=== PATIENT | male | born 1975 | race Caucasian/White ===

== ENCOUNTER 2023-03-21 21:38 | Emergency (ER) | payer OTHER, SELFPAY ==
[2023-03-21 21:39] VITALS: BP 149/84; PULSE 88; RESP 16; TEMP 36.1; O2SAT 99; BMI 24.3
--- NOTE | 2023-03-21 21:52 | RAD_ITS ---
EXAM: XR CHEST, 1 VIEW CLINICAL INDICATION: chest pain TECHNIQUE: Frontal view of the chest. COMPARISON: No relevant prior studies available. FINDINGS: LUNGS AND PLEURAL SPACES: No significant abnormality. No consolidation or edema. No pneumothorax. No effusion. HEART: No significant abnormality. Cardiac silhouette not enlarged. MEDIASTINUM: Central airways and mediastinal contour are unremarkable. BONES/JOINTS: No significant abnormality. No acute fracture. SOFT TISSUES: No significant abnormality. RAD/Chest 1 View (Portable) IMPRESSION: No radiographic evidence of acute cardiopulmonary disease. Electronically Signed: Rubens Small DO at 22:03 EST ,
[2023-03-21 21:57] LABS: Absolute Lymphocyte Count 2.71 X10^3/uL (0.83-4.51); Absolute Neutrophil Count 4.7 X10^3/uL (2.0-7.7); Basophil# 0.04 X10^3/uL; Basophil% 0.5 % (0-1); Eosinophil# 0.06 X10^3/uL; Eosinophils% 0.7 % (0-5); Hematocrit 43.4 % (40-54); Hemoglobin 14.5 g/dL (13.0-16.5); Lymphocyte # 2.71 X10^3/ul (0.83-4.51); Lymphocyte % 31.9 % (19-41); Mean Corp Hgb Conc 33.4 g/dL (32-36); Mean Corpuscular Hgb 28.7 pg (27.0-32.0); Mean Corpuscular Volume 85.8 fL (80-94); Mean Platelet Vol. 9.8 fl (6.2-12.0); Monocyte# 0.98 X10^3/uL; Monocyte% 11.5 % (0-10); NRBC Flagged by Analyzer 0 % (0-5); Neutrophil # 4.69 X10^3/uL (2.7-7.7); Neutrophil % 55.2 % (47-70); Platelet Count 283 K/mm3 (150-450); RBC Distribution Width CV 11.9 % (11.6-14.6); RBC Distribution Width SD 37.1 fl (35.1-43.9); Red Blood Count 5.06 M/mm3 (4.6-6.2); White Blood Count 8.5 K/mm3 (4.4-11.0)
[2023-03-21 22:18] LABS: Anion Gap 6 (5-15); BUN 18 mg/dL (7-18); BUN/Creat Ratio 16.5 RATIO (10-20); Calcium,Total 9.5 mg/dL (8.5-10.1); Chloride 103 mmol/L (98-107); Creatinine, Serum 1.09 mg/dL (0.70-1.30); EST Glomerular Filtration Rate 77 mL/min (>60); Est Glom Filt Rate - Afr Amer 93 mL/min (>60); Estimated Creatinine Clearance 83.78 ml/min; Glucose 101 mg/dL (74-106); Potassium 3.4 mmol/L (3.5-5.1); Sodium Level 141 mmol/L (136-145); Troponin-I HS (w/2H Reflex) 4 pg/mL (3.0-78.0)
[2023-03-21 22:30] VITALS: O2SAT 100
[2023-03-21 22:39] VITALS: BP 131/80; PULSE 74; RESP 16; O2SAT 100
--- NOTE | 2023-03-21 22:40 | ED.VIS.CHEST ---
HPI History of Present Illness Chief Complaint: Chest Pain [facility] Medical History no medical history Home Medications omeprazole 20 mg capsule,delayed release 20 mg PO DAILY #30 CAPSULES 03/22/23 [Rx Last Taken Unknown] sucralfate 1 gram tablet (Carafate) 1 g PO BID PRN epigastric pain #14 tabs 03/22/23 [Rx Last Taken Unknown] Allergy/AdvReac Type Severity Reaction Status Date / Time No Known Allergies Allergy Verified 03/21/23 21:39 Social History Smoking Status: Never smoker EXAM Physical Exam Const Vital Signs: 03/21/23 21:39 03/21/23 22:30 03/21/23 22:30 Temperature 96.9 F L Temperature Source Temporal Pulse Rate 88 Respiratory Rate 16 Respiratory Effort Normal Blood Pressure 149/84 H Blood Pressure Mean 105 Pulse Ox 99 100 Oxygen Delivery Method Room Air Room Air 03/21/23 22:39 03/21/23 23:00 Temperature Temperature Source Pulse Rate 74 78 Respiratory Rate 16 18 Respiratory Effort Blood Pressure 131/80 H 130/80 H Blood Pressure Mean 97 96 Pulse Ox 100 100 Oxygen Delivery Method Room Air Room Air Heart Score History: Slightly/Non-Suspicious ECG: Normal Age: >45 - <65 years Risk Factors: No Risk Factors Troponin: </= Normal Limit Score: 1 MDM MDM MDM Narrative Medical decision making narrative: HISTORY OF PRESENT ILLNESS: 47-year-old male presents with chest pain. He states that pain is located in the epigastrium. States it started approximately 1 hour ago. He endorsed a history of GERD. He further states pain occurred after eating a snack. He states he feels like his typical reflux symptoms but did not resolve with Pepcid which concerned him. Denies any syncope. Denies the pain ripping or tearing notes is burning. Denies any exertional component or pleuritic component. Denies any family history of early cardiac . Denies any bleeding diathesis. Denies any vomiting or diarrhea. Patient denies sudden onset of pain, no tearing sensation, no migratory symptoms, no new numbness, weakness or loss of sensation. Patient denies family history or personal history of Marfan syndrome or Inez-Danlos. The patient denies recent surgery in the last 4 weeks or immobilization in the last 3 days, denies previous diagnosis of DVT or PE, hemoptysis, unilateral leg swelling or malignancy with treatment the last 6 months. No estrogen use noted. REVIEW OF SYSTEMS: All other systems reviewed and are negative except as noted in the history of present illness. At least 10 review of systems reviewed and are negative except as noted in history of present illness. PHYSICAL EXAM: Nursing triage notes reviewed, Vital signs reviewed Constitutional: please see [facility] HENT: MMM Eyes: Pupils equal round and reactive to light, Extraocular muscles intact Neck: No stridor, no JVD, full neck ROM Lungs: Clear to auscultation, No wheezing or rales. No increased work of breathing, no conversational dyspnea, no accessory muscle use, no nasal flaring. No respiratory distress noted Heart: Regular rate and rhythm, No murmurs, No rubs and No gallops, 2+ distal pulses (radial, femoral, posterior tibial) in all extremities Abdomen: Soft, there is no tenderness, rigidity, rebound or guarding, no obvious peritoneal signs, no palpable pulsatile abdominal masses, no auscultated abdominal bruit : No CVAT Extremities: No edema Neuro: No focal neurological deficits, cranial nerves II through XII intact, 5/5 strength in all extremities. Intact sensation to light touch in all extremities, 2+ reflexes bilateral patella tendons. Normal gait. No ataxia. Skin: No rash or lesions noted MEDICAL DECISION MAKING: Chief Complaint: Chest pain External records reviewed: No recent cardiac catheterizations, stress test or echocardiograms noted in the chart Factors affecting care: GERD Social determinants of health: Denies cocaine or methamphetamine or other illicit drug use History obtained from others: none Consults: none ALL IMAGES (IF OBTAINED) HAVE BEEN PERSONALLY REVIEWED AND INTERPRETED BY MYSELF. [facility] Narrative: The Patient was dynamically stable, afebrile, nontoxic-appearing. Exam is benign, there are no peritoneal signs low suspicion for acute surgical pathology the abdomen pelvis I considered the following differential diagnosis: ACS, arrhythmia, anemia, electrolyte abnormality, pneumonia, pneumothorax, GI etiology, PE CBC without leukocytosis, severe anemia, no thrombocytopenia. BMP without evidence of significant electrolyte abnormalities, no anion gap, no acute kidney injury. High-sensitivity troponin is negative, no evidence of myocardial ischemia EKG with normal sinus rhythm, normal axis, normal intervals, no STEMI I have personally reviewed the patient's chest x-ray. Chest x-ray is unremarkable for pulmonary edema, pneumothorax, pneumonia or focal cardiopulmonary abnormality. LFTs with slight elevation in liver enzymes however normal bilirubin. The patient was not jaundiced, and right quadrant tenderness over the suspicion this represents a life-threatening etiology I will prescribe omeprazole and Carafate for symptomatic relief I prescribed omeprazole and Carafate for symptomatic relief. PE less likely given low risk Wells score. Aortic dissection is thought to be less likely given no sudden ripping or tearing pain, migratory pain, palpable pulse inequalities, no focal neurologic deficits concurrent with chest pain. Chance of dissection less than 03/1999. Pericarditis less likely given no pathognomonic EKG changes (no diffuse ST elevations, DC depressions). GI etiology (i.e. Boerhaave syndrome) less likely given no chest or neck crepitus, no vomiting or forced retching. I completed a HEART Score to screen for Major Adverse Cardiac Event (MACE) in this patient. The evidence indicates that the patient is very low risk for MACE and this is consistent with my clinical intuition. The risk of further workup or hospitalization for MACE is likely higher than the risk of the patient having a MACE. It is, therefore, in the patient?s best interest not to do additional emergent testing or to be hospitalized for MACE at this time. Shared Decision-Making No hospitalization indicated I have discussed with the patient my clinical impression and the result of the HEART Score to screen for MACE, as well as the risks of further testing and hospitalization. The HEART Score shows that the risk for MACE is less than 1%. Although the risk of MACE has not been completely eliminated, the risks of further testing or hospitalization for MACE likely exceed any potential benefit, and the patient agrees with not pursuing further emergent evaluation or hospitalization for MACE at this time. The patient and/or family, caregivers express understanding. The patient and/or family, caregivers agrees with the plan. Total critical care time today provided was at least 0 minutes. This excludes separately billable procedures. Critical care time (if documented) is secondary to the patient having high probability of clinically significant/life threatening deterioration in the patient's condition which required my urgent intervention. Impression: 1. Chest pain 2. Indigestion 3. Elevated liver enzymes 4. Hypokalemia Dispo physician: Discharge Adán Taylor, DO Lab Data Labs: Laboratory Results - last 24 hr 03/21/23 03/21/23 21:48 23:45 WBC 8.5 RBC 5.06 Hgb 14.5 Hct 43.4 MCV 85.8 MCH 28.7 MCHC 33.4 RDW Std Deviation 37.1 RDW Coeff of Nydia 11.9 Plt Count 283 MPV 9.8 Immature Gran % (Auto) 0.200 Neut % (Auto) 55.2 Lymph % (Auto) 31.9 Routt % (Auto) 11.5 H Eos % (Auto) 0.7 Baso % (Auto) 0.5 Absolute Neuts (auto) 4.7 Absolute Lymphs (auto) 2.71 Nucleated RBC % 0 Sodium 141 Potassium 3.4 L Chloride 103 Carbon Dioxide 32.0 Anion Gap 6 BUN 18 Creatinine 1.09 Estim Creat Clear Calc 83.78 Est GFR (MDRD) Af Amer 93 Est GFR (MDRD) Non-Af 77 BUN/Creatinine Ratio 16.5 Glucose 101 Calcium 9.5 Total Bilirubin 0.50 Direct Bilirubin 0.20 AST 161 H ALT 139 H Alkaline Phosphatase 61 Troponin I High Sens 4 3 Total Protein 7.9 Albumin 4.1 Globulin 3.8 Lipase 33 Radiography Diagnostic Testing: Clinical Impression(s) from Imaging Studies Chest X-Ray 03/21/23 21:52 IMPRESSION: No radiographic evidence of acute cardiopulmonary disease. Electronically Signed: Rubens Small DO at 22:03 EST , Discharge Plan Triage Chief Complaint: Chest Pain ED Provider: Adán Taylor Dx/Rx/DC Orders Instructions: Chest Pain [facility] Prescriptions: New sucralfate [Carafate] 1 gram tablet 1 g PO BID PRN (Reason: epigastric pain) Qty: 14 0RF omeprazole 20 mg capsule,delayed release(DR/EC) 20 mg PO DAILY Qty: 30 0RF Primary Care Provider: Care Physician,No Primary Referrals: Sebastien Thompson MD [Med Staff - Relief Master] - Friend,DO Mendez [Med Staff - Active Staff] - Activity Restrictions/Additional Instructions: Thank you for trusting us with your care today! Please take Tylenol (2 pills, 650 mg) every 6 hours as needed for pain and fever control. Please take omeprazole as this is more effective acid blocking medication. Obtain omeprazole [id number] is also known as Please take Carafate as needed. Please return to the emergency department if your symptoms change or worsen. If you develop chest pain, you lose consciousness, if you develop weakness on one side of your body, loss of sensation. Please follow with your primary care physician for further outpatient evaluation and management. Specifically to inquire about outpatient stress testing to further evaluate your heart. You should also follow-up with a GI doctor to perform an upper endoscopy to further workup your symptoms. Disposition Disposition: Home, Self Care
[2023-03-21 23:00] VITALS: BP 130/80; PULSE 78; RESP 18; O2SAT 100
[2023-03-21] MEDS: Famotidine 200 MG/20 ML MDV 20 MG in 0.9% Normal Saline (Pres. free 8 ML 300 MG IV (23:16)
[2023-03-21] MEDS: Sucralfate 1 GM Tablet PO (23:16)
[2023-03-21] MEDS: Mag Hydrox/Al Hydrox/Simeth 30 ML UDC PO (23:16)
[2023-03-21 23:54] LABS: Reflex Troponin-HS? (from REC) Y
[2023-03-22 00:01] LABS: Lipase 33 U/L (13-75)
[2023-03-22 00:03] LABS: AST(SGOT) 161 U/L (15-37); Alanine Aminotransfer ALT/SGPT 139 U/L (16-61); Albumin, Serum 4.1 g/dL (3.2-5.0); Alkaline Phosphatase 61 U/L (45-117); Globulin 3.8 g/dL (2.2-4.2); Protein, Total 7.9 g/dL (6.4-8.2)
[2023-03-22 00:24] LABS: Troponin-I HS 3 pg/mL (3.0-78.0)
[2023-03-22] MEDS: Ketorolac 15 MG/ML Vial IV (00:35)
[2023-03-22 01:10] VITALS: BP 118/81; PULSE 93; RESP 18; O2SAT 98
== END 2023-03-22 01:12 | disposition home or self-care (01) ==
PROVIDERS: Emergency Provider Emergency Medicine; Visit Provider Emergency Medicine
DX: K30 Functional dyspepsia (principal); E87.6 Hypokalemia; R07.9 Chest pain, unspecified; R74.01 Elevation of levels of liver transaminase levels
CPT/HCPCS: 71045; 80048; 80076; 83690; 84484; 85025; 93005; 96365; 96375; 99284; A4216; J3490